=== PATIENT | female | born 1965 | race Caucasian/White ===

== ENCOUNTER 2021-02-08 13:31 | Outpatient (CLI) | payer BC | END 2021-02-08 13:32 | disposition home or self-care (01) | LOC: BICMRI 13:31 | PROVIDERS: ATTEND Neurological Surgery | DX: M47.26 Other spondylosis with radiculopathy, lumbar region (principal); R26.89 Other abnormalities of gait and mobility; M47.812 Spondylosis without myelopathy or radiculopathy, cervical region; M48.02 Spinal stenosis, cervical region | CPT/HCPCS: 72050; 72100; 72141; 72148 ==

== ENCOUNTER 2021-09-25 15:00 | Inpatient (IN) | payer BC ==
[2021-09-25 13:12] VITALS: BMI 30.9
[2021-09-28] MEDS ORDERED: Thrombin 5000 UNITS/5 ML VIAL ONE (06:10)
[2021-09-28] MEDS ORDERED: Neomycin-Polymyxin 1 ML AMP ONE (06:10)
[2021-09-28] MEDS ORDERED: fentaNYL Citrate/PF 100 MCG/2 ML SYRINGE ONE (06:34)
[2021-09-28] MEDS ORDERED: Sodium Chloride 0.9% 100 ML ONE (06:46)
[2021-09-28] MEDS ORDERED: Midazolam HCl 2 mg/2 ml Vial ONE (06:46)
[2021-09-28] MEDS ORDERED: CEFAZOLIN 2 GM VIAL ONE (06:46)
[2021-09-28] MEDS ORDERED: Bisacodyl 10 MG SUPP PR PRN (07:20)
[2021-09-28] MEDS ORDERED: Milk Of Magnesia 30 ML UDCUP PO PRN (07:20)
[2021-09-28] MEDS ORDERED: Ondansetron PF 4 MG/2 ML Vial IVP PRN (07:20)
[2021-09-28] MEDS ORDERED: diphenhydrAMINE 25 MG CAP PO PRN (07:20)
[2021-09-28] MEDS ORDERED: Prochlorperazine 10 MG/2 ML VIAL IM PRN (07:20)
[2021-09-28] MEDS ORDERED: Mag-Al 1200 mg/1200 mg/30 ML UDCUP PO PRN (07:20)
[2021-09-28] MEDS ORDERED: Morphine 2 MG/ML VIAL SLOW IVP PRN (07:20)
[2021-09-28] MEDS ORDERED: HYDROcodone/Acetaminophen 10/325 mg Tablet PO PRN (07:20)
[2021-09-28] MEDS ORDERED: Acetaminophen/Codeine 30-300mg Tablet PO PRN (07:20)
[2021-09-28] MEDS ORDERED: HYDROcodone/Acetaminophen 7.5/325 mg Tablet PO PRN (07:20)
[2021-09-28] MEDS ORDERED: Cyclobenzaprine 10 MG TAB PO PRN (07:20)
[2021-09-28] MEDS ORDERED: ceFAZolin 2 GM/Dextrose 50 ML 2 GM in Premix Bag 1 BAG IVPB SCH (07:30)
[2021-09-28] MEDS ORDERED: SUGAMMADEX SODIUM 200 MG/2 ML VIAL ONE (11:56)
[2021-09-28] MEDS ORDERED: HYDROmorphone 2 MG/ML VIAL ONE (12:22)
[2021-09-28] MEDS: CEFAZOLIN 2 GM in Sodium Chloride 0.9% 100 ML IVPB SCH ×2 (15:10→21:48)
[2021-09-28] MEDS: Sodium Chloride 0.9% 1,000 ML IV SCH ×2 (15:10→21:48)
[2021-09-29] MEDS ORDERED: Modafinil 100 MG TAB PO SCH (09:00)
[2021-09-29] MEDS ORDERED: Venlafaxine HCl XR 150 MG CAP PO SCH (09:00)
[2021-09-29] MEDS ORDERED: Bupropion 150 MG XL TAB PO SCH (09:00)
[2021-09-29] MEDS: Sodium Chloride 0.9% 1,000 ML IV SCH (09:25)
[2021-09-29 12:09] VITALS: BP 147/77; TEMP 98.4
== END 2021-09-29 15:25 | disposition home or self-care (01) | DRG 473 ==
LOC: SURG A 09-28 05:38
PROVIDERS: ADMIT Neurological Surgery; ATTEND Neurological Surgery
PROC: 0RG20A0 Fusion of 2 or more Cervical Vertebral Joints with Interbody Fusion Device, Anterior Approach, Anterior Column, Open Approach (ICD-10-PCS; principal; 2021-09-28)
PROC: 0RT30ZZ Resection of Cervical Vertebral Disc, Open Approach (ICD-10-PCS; 2021-09-28)
PROC: 01N10ZZ Release Cervical Nerve, Open Approach (ICD-10-PCS; 2021-09-28)
DX: M50.01 Cervical disc disorder with myelopathy, high cervical region (principal); F32.A Depression, unspecified; F41.9 Anxiety disorder, unspecified; D64.9 Anemia, unspecified; Z20.822 Contact with and (suspected) exposure to COVID-19; Z98.51 Tubal ligation status; Z87.891 Personal history of nicotine dependence; M50.11 Cervical disc disorder with radiculopathy, high cervical region
CPT/HCPCS: 76000; C1713; J0690; J1170; J2250; J3490; J7050; J7620

== ENCOUNTER 2021-09-25 15:01 | Outpatient (CLI) | payer BC ==
[2021-09-25 16:15] LABS: Hemoglobin 14.2 g/dL (12.0-15.5); Mean Corpuscular HGB CONC 32.7 g/dL (32.0-36.0); Mean Corpuscular Hemoglobin 29.3 pg (27.0-33.0); Mean Corpuscular Volume 89.7 fl (81.6-98.3); Mean Platelet Volume 9.8 fl (7.4-10.4); Platelet Count 479 10x3/uL (150-450); RBC Distribution Width 13.4 % (11.5-14.5); Red Blood Cell (RBC) Count 4.84 10x6/uL (3.90-5.03); White Blood Cell (WBC) Count 14.7 10x3/uL (3.5-10.5)
[2021-09-25 16:26] LABS: INR-International Normal Ratio 0.9; PTT 24.4 sec (22.0-33.0); Prothrombin Time 10.1 sec (9.5-12.1)
== END 2021-09-25 15:02 | disposition home or self-care (01) ==
LOC: LABBT 15:01
PROVIDERS: ATTEND Neurological Surgery
DX: Z01.812 Encounter for preprocedural laboratory examination (principal); G95.89 Other specified diseases of spinal cord; Z20.822 Contact with and (suspected) exposure to COVID-19
CPT/HCPCS: 85027; 85610; 85730; U0003; U0005